=== PATIENT | female | born 1940 | race Caucasian/White ===

== ENCOUNTER 2021-02-14 15:54 | Inpatient (IN) | payer MEDICARE ==
[~2021-02-14] VITALS: Ht 160 cm; Wt 44.5 kg
[2021-02-14 17:04] LABS: BASOPHILS 0 % (0-2); HEMATOCRIT 31.6 % (36.0-48.0); HEMOGLOBIN 10.2 g/dL (12-16); IMMATURE GRANULOCYTES 0.1 % (0-5); LYMPHOCYTE ABS# 2.89 10x3/uL (1.18-3.74); LYMPHOCYTES 37.9 % (15-50); MCH 30.4 pg (26.0-34.0); MCHC 32.3 g/dL (31.0-37.0); MEAN PLATELET VOLUME 12.2 fL (7.4-10.4); MONOCYTES 14.7 % (2-11); NEUTROPHIL ABS# 3.52 10x3/uL (1.56-6.13); NEUTROPHILS 46.3 % (40-80); PLATELET COUNT 141 10x3/uL (130-400); RBC 3.36 10x6/uL (4.00-5.40); RDW 13.9 % (11.5-14.5); WBC 7.6 10x3/uL (4.8-10.8)
[2021-02-14 17:11] LABS: ANION GAP 14.4 mmol/L (8-16); CARBON DIOXIDE 25.7 mmol/L (21.0-32.0); POTASSIUM - SERUM 4.1 mmol/L (3.5-5.1)
[2021-02-14 17:21] VITALS: BP 129/65; BMI 17.4
[2021-02-14 17:40] LABS: APTT 28.3 SECONDS (22.8-39.4); INR 1.01 (0.85-1.17); PROTIME 12.3 SECONDS (11.6-15.0)
--- NOTE | 2021-02-14 17:41 | NUR ---
PT STANDING BESIDE BED. ADMIN ASSESSMENT DONE. DR STEELE CAME AND UPDATED PT ON PLAN OF CARE. L FA IV CDI. ALL NEEDS MET AT THIS TIME CLWR.
[2021-02-14 19:16] VITALS: BP 143/71
--- NOTE | 2021-02-14 19:22 | NUR ---
UP AD RADHA IN ROOM. DENIES PAIN. ATE PEACHES FOR DINNER. NPO FOR CT SCAN.
[2021-02-14 23:43] VITALS: BP 136/82
[2021-02-15 03:45] VITALS: BP 141/80
[2021-02-15 07:04] LABS: ALBUMIN 2.8 g/dL (3.4-5.0); ANION GAP 13.7 mmol/L (8-16); BILIRUBIN - DIRECT 0.06 mg/dL (0.00-0.30); BILIRUBIN - INDIRECT 0.18 mg/dL (0.00-1.00); BILIRUBIN - TOTAL 0.24 mg/dL (0.2-1.3); CALCIUM 8.4 mg/dL (8.5-10.1); CARBON DIOXIDE 25.6 mmol/L (21.0-32.0); MAGNESIUM - SERUM 2.2 mg/dL (1.8-2.4); PHOSPHOROUS 4.6 mg/dL (2.5-4.9); POTASSIUM - SERUM 4.3 mmol/L (3.5-5.1); PROTEIN - SERUM 5.8 g/dL (6.4-8.2)
[2021-02-15 07:10] LABS: BASOPHILS 0.4 % (0-2); EOSINOPHILS 2.4 % (0-7); HEMOGLOBIN 10.1 g/dL (12-16); LYMPHOCYTES 44.7 % (15-50); MCH 31.2 pg (26.0-34.0); MCHC 33.6 g/dL (31.0-37.0); MCV 92.8 fL (80.0-100.0); MEAN PLATELET VOLUME 10.2 fL (7.4-10.4); MONOCYTES 15.5 % (2-11); PLATELET COUNT 124 10x3/uL (130-400); RBC 3.23 10x6/uL (4.00-5.40); RDW 13.8 % (11.5-14.5); WBC 7.3 10x3/uL (4.8-10.8)
--- NOTE | 2021-02-15 07:53 | NUR ---
PT STANDING IN ROOM WANTING A SHOWER. GIVEN TOWELS AND A GOWN. RR EVEN NONLABORED. IV CDI. ALL NEEDS MET AT THIS TIME. CLWR.
[2021-02-15 07:54] VITALS: Ht 160 cm; Wt 44.5 kg
[2021-02-15 08:00] LABS: INR 1.08 (0.85-1.17)
[2021-02-15 08:06] VITALS: BP 130/76
[2021-02-15 11:08] LABS: BILIRUBIN NEGATIVE (NEGATIVE); KETONE NEGATIVE (NEGATIVE); NITRITE NEGATIVE (NEGATIVE); UROBILINOGEN NORMAL mg/dL (< 2)
[2021-02-15 11:09] LABS: SQUAMOUS EPITHELIAL 0-5 HPF (0-4); WHITE CELLS - URINE 0-5 HPF (0-4)
[2021-02-15 11:25] VITALS: BP 151/75
[2021-02-16 09:11] LABS: HEPATITIS C ANTIBODY <0.1 S/CO RAT (0.0-0.9)
== END 2021-02-15 12:46 | disposition left against medical advice (07) | DRG 392 ==
LOC: D.M2 15:54
PROVIDERS: ADMIT Internal Medicine Nephrology; ATTEND Internal Medicine Nephrology
DX: K52.9 Noninfective gastroenteritis and colitis, unspecified (principal); N19 Unspecified kidney failure; D64.9 Anemia, unspecified; E87.5 Hyperkalemia